=== PATIENT | male | born 1975 | race Caucasian/White ===

== ENCOUNTER 2024-10-23 18:46 | Emergency (ER) | payer BC ==
[2024-10-23] MEDS ORDERED: Acetaminophen/HYDROcodone 325-5 MG Tab PO ONE (18:47)
[2024-10-23] MEDS: oxyCODONE 5 MG Tab PO ONE (21:52)
[2024-10-23] MEDS: Diazepam 5 MG Tab PO ONE (21:52)
== END 2024-10-23 22:10 | disposition home or self-care (01) ==
LOC: FB.ED 18:46
DX: S16.1XXA Strain of muscle, fascia and tendon at neck level, initial encounter (principal); Z79.899 Other long term (current) drug therapy; X50.0XXA Overexertion from strenuous movement or load, initial encounter; Y93.89 Activity, other specified
CPT/HCPCS: 99283; A9270